=== PATIENT | male | born 1945 | race Caucasian/White ===

== ENCOUNTER 2017-10-08 13:50 | Emergency (ER) | payer MEDICARE ==
[2017-10-08 15:29] LABS: #Basophils 0.1 thou/uL (0.0-0.2); #Eosinphils 0.1 thou/uL (0.0-0.7); #Lymphocytes 2.2 thou/uL (1.20-3.40); #Monocytes 0.8 thou/uL (0.11-0.59); #Neutrophils 7.9 thou/uL (1.40-6.50); %Basophils 0.9 % (0.0-1.0); %Lymphocytes 19.6 % (21.0-51.0); %Monocytes 7.3 % (0.0-10.0); %Neutrophils 71.3 % (42.0-75.0); Hemoglobin 14.7 g/dL (14.0-18.0); Mean Corpuscular Hemoglobin 30.1 pg (27.0-31.0); Mean Corpuscular Volume 88.5 fl (80.0-94.0); Mean Platelet Volume 8.6 fL (7.4-10.4); Platelet Count 264 thou/uL (130-400); RBC Distribution Width 12.6 % (11.5-14.5); Red Blood Cell (RBC) Count 4.88 mill/uL (4.70-6.10); White Blood Cell (WBC) Count 11.1 thou/uL (4.8-10.8)
[2017-10-08 15:42] LABS: ALT (SGPT) 23 U/L (8-55); AST (SGOT) 17 U/L (5-34); Albumin 4.1 g/dL (3.4-4.8); Alcohol Less than 10 mg/dL (Less than 10); Alkaline Phosphatase 59 U/L (40-150); Anion Gap 15 mmol/L (10-20); BUN (Urea Nitrogen) 14 mg/dL (8.4-25.7); Bilirubin, Total 0.5 mg/dL (0.2-1.2); CK (CPK) 75 U/L (30-200); Calc. Creatinine Clearance 0 mL/min (70-130); Calcium 9.2 mg/dL (7.8-10.44); Carbon Dioxide 24 mmol/L (23-31); Chloride 103 mmol/L (98-107); Estimated GFR-MDRD Greater than 90; Globulin 2.9 g/dL (2.4-3.5); Glucose 153 mg/dL (83-110); Potassium 3.7 mmol/L (3.5-5.1); Sodium 138 mmol/L (136-145)
[2017-10-08 15:48] LABS: Acetaminophen Less than 6.0 mcg/mL (10.0-30.0); Alcohol Less than 10 mg/dL (Less than 10); Salicylate Less than 8.0 mg/dL (15.0-30.0)
[2017-10-08 16:28] LABS: Bilirubin Negative (Negative); Blood, Urine Negative (Negative); Clarity Clear (Clear); Glucose, Urine (Dipstick) Negative (Negative); Leukocyte Negative (Negative); Nitrite Negative (Negative); Protein, Urine (Dipstick) Negative (Neg-Trace); Specific Gravity, Urine 1.025 (1.005-1.030); Urobilinogen 0.2 mg/dL (0.2-1.0); pH, Urine 5.5 (5.0-9.0)
[2017-10-08 16:35] LABS: Amphetamine Not Detected (NotDetected); Barbiturates Screen Not Detected (NotDetected); Benzodiazepine Screen Not Detected (NotDetected); Cocaine Metabolite Screen Not Detected (NotDetected); Medtox Control Line Valid? VALID (VALID); Methadone Not Detected (NotDetected); Methamphetamine Not Detected (NotDetected); Opiate Screen Not Detected (NotDetected); Oxycodone Screen Not Detected (NotDetected); Phencyclidine (PCP) Not Detected (NotDetected); THC/Cannabinoid Screen Not Detected (NotDetected); Tricyclic Screen Not Detected (NotDetected)
--- NOTE | 2017-10-19 20:47 | EKG ---
Test Reason : Blood Pressure : / mmHG Vent. Rate : 074 BPM Atrial Rate : 074 BPM P-R Int : 164 ms QRS Dur : 112 ms QT Int : 410 ms P-R-T Axes : 052 -08 063 degrees QTc Int : 455 ms Normal sinus rhythm Possible Left atrial enlargement Inferior infarct , age undetermined Left axis deviation Nonspecific T wave abnormality Abnormal ECG Confirmed by MICHAEL THAKKAR, ANGELA ([id number]), assistant film editor NIRU MEYER ([id number]) on 10/19/2017 8:47:20 PM Referred By: Confirmed By:ANGELA RODRIGUEZ MD
== END 2017-10-08 16:24 | disposition home or self-care (01) ==
LOC: SCSER 13:50
DX: F29 Unspecified psychosis not due to a substance or known physiological condition (principal); E11.9 Type 2 diabetes mellitus without complications; F41.9 Anxiety disorder, unspecified; F32.9 Major depressive disorder, single episode, unspecified; Z79.84 Long term (current) use of oral hypoglycemic drugs; Z79.899 Other long term (current) drug therapy
CPT/HCPCS: 80053; 80306; 80307; 81003; 82550; 84443; 85025; 93005

== ENCOUNTER 2019-12-30 10:11 | Outpatient (CLI) | payer MEDICARE ==
--- NOTE | 2019-12-31 07:54 | NM ---
Nuclear medicine [facility] brain SPECT: 12/31/2019 HISTORY: 74-year-old male with "unspecified abnormal involuntary movements." Suspected parkinsonism. TECHNIQUE: Premedicated with 100 mg SSKI PO. One hour later, 4.3 mCi I-123 Ioflupane injected. Axial SPECT images of brain performed. FINDINGS: There is bilaterally symmetrical uptake in the putamen and caudate nuclei. IMPRESSION: Negative. No evidence of Parkinson's disease.
== END 2019-12-30 10:12 | disposition home or self-care (01) ==
LOC: NM 10:11
PROVIDERS: ATTEND Psychiatry & Neurology Neurology
DX: R25.1 Tremor, unspecified (principal)
CPT/HCPCS: 78803; A9584